=== PATIENT | male | born 1980 | race Caucasian/White ===

== ENCOUNTER 2020-11-18 08:17 | Inpatient (IN) | payer MEDICAID ==
[~2020-11-18 08:17] MED LIST: Acetaminophen 500 MG Tab PO ONE; Celecoxib 200 MG Cap PO ONE; Dexamethasone 4 MG/ML SDV ONE; Glycopyrrolate 0.2 MG/ML 5 ML MDV ONE; Neostigmine Methylsulfate 1 MG/ML 5 ML Syringe ONE; Ondansetron 4 MG/2 ML SDV ONE; Propofol 200 MG/20 ML SDV ONE; Scopolamine 1.5 MG Transdermal Patch TRDERM SCH; Succinylcholine 200 MG/10 ML MDV ONE; cefOXitin 2 GM Vial ONE; fentaNYL 250 MCG/5 ML SDV ONE
[2020-11-18] MEDS ORDERED: Rocuronium 50 MG/5 ML Vial ONE ×2 (08:44)
[2020-11-18] MEDS ORDERED: Dextrose 5%-Lactated Ringers 1,000 ML IV SCH ×2 (08:45→14:15)
[2020-11-18] MEDS ORDERED: Albuterol/Ipratropium 3.0-0.5 MG/3 ML Neb Soln NEB ONE (09:15)
[2020-11-18] MEDS ORDERED: Ketamine 50 MG in Sodium Chloride 0.9% 49.5 ML IV SCH (10:00)
[2020-11-18] MEDS ORDERED: Magnesium Sulfate 4.3 GM in Sodium Chloride 0.9% 250 ML IV ONE (10:00)
[2020-11-18] MEDS ORDERED: Ketamine 500 MG/5 ML MDV IV SCH (10:00)
[2020-11-18] MEDS ORDERED: Lactated Ringers 1,000 ML ONE (10:03)
[2020-11-18] MEDS: cefOXitin 2 GM in Sodium Chloride 0.9% 50 ML IV ONE ×2 (10:16→11:30)
[2020-11-18] MEDS ORDERED: Sodium Chloride 0.9% 10 ML ONE (10:53)
[2020-11-18] MEDS ORDERED: ePHEDrine 50 MG/ML SDV ONE (10:53)
[2020-11-18] MEDS ORDERED: fentaNYL 100 MCG/2 ML SDV ONE (11:56)
[2020-11-18] MEDS ORDERED: HYDROmorphone 1 MG/ML Syringe IV PRN (14:00)
[2020-11-18] MEDS ORDERED: oxyCODONE 5 MG Tab PO PRN (14:00)
[2020-11-18] MEDS: traMADol 50 MG Tab PO PRN ×2 (14:01→20:02)
[2020-11-18] MEDS ORDERED: Cyclobenzaprine 10 MG Tab PO PRN (14:06)
[2020-11-18] MEDS ORDERED: cloNIDine 0.1 MG Tab PO PRN (14:13)
[2020-11-18] MEDS: HYDROmorphone 0.5 MG/0.5 ML Syringe IVPUSH PRN ×2 (14:45→22:37)
[2020-11-18] MEDS ORDERED: LORazepam 2 MG/ML SDV IVPUSH PRN (14:56)
[2020-11-18] MEDS ORDERED: Albuterol/Ipratropium 3.0-0.5 MG/3 ML Neb Soln INH PRN (15:00)
[2020-11-18] MEDS ORDERED: Calcium Gluconate 10% 1 GM/10 ML SDV IVPUSH PRN (15:00)
[2020-11-18] MEDS ORDERED: Metoclopramide 10 MG/2 ML SDV IVPUSH PRN (15:00)
[2020-11-18] MEDS ORDERED: Acetaminophen 500 MG Tab PO PRN (15:00)
[2020-11-18] MEDS ORDERED: hydrOXYzine HCL 100 MG/2 ML SDV IM PRN (15:00)
[2020-11-18] MEDS ORDERED: diphenhydrAMINE 50 MG/ML SDV IVPUSH PRN (15:00)
[2020-11-18] MEDS ORDERED: Ondansetron 4 MG/2 ML SDV IVPUSH PRN (15:00)
[2020-11-18] MEDS ORDERED: Labetalol 20 MG/4 ML Syringe IVPUSH PRN (15:00)
[2020-11-18] MEDS ORDERED: Pantoprazole 40 MG Vial IVPUSH SCH (16:00)
[2020-11-18] MEDS: cefOXitin 2 GM in Sodium Chloride 0.9% 50 ML IV SCH ×2 (16:04→22:15)
[2020-11-18] MEDS: MVI, Adult with Vitamin K 10 ML, Thiamine 200 MG, Zinc/Copper/Manganese/Selenium 1 ML i... IV SCH ×4 (16:35)
[2020-11-18] MEDS: Acetaminophen 500 MG Tab PO SCH ×2 (16:37→23:47)
[2020-11-18] MEDS: hydrALAZINE 25 MG Tab PO SCH ×2 (16:37→22:22)
[2020-11-18] MEDS: Albuterol/Ipratropium 3.0-0.5 MG/3 ML Neb Soln INH SCH ×2 (17:25→22:07)
[2020-11-18] MEDS: Enoxaparin 40 MG/0.4 ML Syringe SUBCUT SCH (20:01)
[2020-11-18] MEDS ORDERED: Metoprolol Tartrate 50 MG Tab PO SCH (21:00)
[2020-11-18] MEDS: amLODIPine 5 MG Tab PO SCH (22:17)
[2020-11-18] MEDS: Metoprolol Succinate 50 MG Tab.ER PO SCH (22:22)
[2020-11-19] MEDS: traMADol 50 MG Tab PO PRN (02:18)
[2020-11-19] MEDS: HYDROmorphone 0.5 MG/0.5 ML Syringe IVPUSH PRN (03:03)
[2020-11-19] MEDS: cefOXitin 2 GM in Sodium Chloride 0.9% 50 ML IV SCH ×3 (03:49→15:12)
[2020-11-19] MEDS ORDERED: Iopamidol 612 MG/ML 50 ML SDV PO ONE (05:09)
[2020-11-19] MEDS ORDERED: Ondansetron 4 MG Tab.DIS PO PRN (07:12)
[2020-11-19] MEDS: Albuterol/Ipratropium 3.0-0.5 MG/3 ML Neb Soln INH SCH ×4 (07:21→21:15)
[2020-11-19] MEDS: HYDROmorphone 2 MG Tab PO PRN ×5 (07:25→23:48)
[2020-11-19] MEDS: Levothyroxine 25 MCG Tab PO SCH (07:28)
[2020-11-19] MEDS: Enoxaparin 40 MG/0.4 ML Syringe SUBCUT SCH ×2 (07:29→19:34)
[2020-11-19] MEDS: Acetaminophen 500 MG Tab PO SCH ×3 (07:29→23:48)
--- NOTE | 2020-11-19 08:58 | PN ---
DATE OF SERVICE: 11/19/2020 SUBJECTIVE: Juan is postop day 1. His upper GI was completed. He has been afebrile. Oral intake 2560. Urine output has been independent. Several voids in the bathroom. EVE drain put out 60 mL of a serosanguineous drainage. REVIEW OF SYSTEMS: Remainder of review of systems negative for any pertinent positives and negatives. OBJECTIVE: GENERAL: Juan Ambriz is a pleasant 40-year-old male. He is alert and orientated. VITAL SIGNS: TPR is 95.2, 86, 18. Blood pressure 120/76. HEENT: Negative. NECK: Supple. HEART: Regular rate and rhythm. LUNGS: Clear. ABDOMEN: Dressings dry and intact. Abdominal binder is on. EXTREMITIES: Without peripheral edema. ASSESSMENT: Laparoscopic Cathryn-en-Y gastric bypass surgery, liver biopsy, takedown of gastrostomy, small bowel resection and repair of paraesophageal diaphragmatic hernia and excision of mediastinal lipoma for morbid obesity, hepatomegaly, status post gastrostomy with revision of small bowel, diaphragmatic hernia, mediastinal lipoma. Date of procedure 11/18/2020. PLAN: Step 2 gastric bypass diet without cereal. May saline lock IV. Dressing off, may shower. Discontinue IV Dilaudid. May have Dilaudid 2 mg q.4 hours p.r.n. pain. Ambulate at least 6 times a day. Use incentive spirometer 10 times every hour while awake. We will evaluate p.r.n. or in a.m. Magda Loo PA-C /[id number]
--- NOTE | 2020-11-19 10:22 | CR ---
[facility] HISTORY: Postbariatric surgery FINDINGS: Patient swallowed water-soluble contrast. Upright views of the abdomen show no evidence of extravasation or obstruction. There is a surgical drain in the left upper quadrant. IMPRESSION: Status post bariatric surgery No extravasation or obstruction seen
[2020-11-19] MEDS: Losartan 50 MG Tab PO SCH (10:32)
[2020-11-19] MEDS: hydrALAZINE 25 MG Tab PO SCH ×3 (10:33→21:18)
[2020-11-19] MEDS: Chlorthalidone 25 MG Tab PO SCH (10:33)
[2020-11-19] MEDS: Celecoxib 200 MG Cap PO SCH ×2 (10:33→21:18)
[2020-11-19] MEDS: Hydrochlorothiazide 12.5 MG Cap PO SCH (10:34)
[2020-11-19] MEDS: Aspirin 81 MG Tab.EC PO SCH (10:34)
[2020-11-19] MEDS: amLODIPine 5 MG Tab PO SCH ×2 (10:34→21:18)
[2020-11-19] MEDS: SCOPOLAMINE PATCH CHECK TOP SCH (10:34)
[2020-11-19] MEDS: Sertraline 50 MG Tab PO SCH (10:35)
[2020-11-19] MEDS: Metoprolol Succinate 50 MG Tab.ER PO SCH ×2 (10:35→21:19)
[2020-11-19] MEDS ORDERED: Pantoprazole 40 MG Delayed-Release Granules 1 Packet PO SCH (16:00)
[2020-11-19] MEDS: MVI, Adult with Vitamin K 10 ML, Thiamine 200 MG, Zinc/Copper/Manganese/Selenium 1 ML i... IV SCH ×4 (16:51)
[2020-11-19] MEDS ORDERED: Warfarin 5 MG Tab PO SCH (21:00)
[2020-11-20] MEDS: HYDROmorphone 2 MG Tab PO PRN ×2 (04:00→08:13)
[2020-11-20] MEDS: Albuterol/Ipratropium 3.0-0.5 MG/3 ML Neb Soln INH SCH (07:17)
[2020-11-20] MEDS: hydrALAZINE 25 MG Tab PO SCH (08:09)
[2020-11-20] MEDS: Enoxaparin 40 MG/0.4 ML Syringe SUBCUT SCH (08:09)
[2020-11-20] MEDS: Aspirin 81 MG Tab.EC PO SCH (08:09)
[2020-11-20] MEDS: Acetaminophen 500 MG Tab PO SCH (08:09)
[2020-11-20] MEDS: Celecoxib 200 MG Cap PO SCH (08:10)
[2020-11-20] MEDS: Chlorthalidone 25 MG Tab PO SCH (08:10)
[2020-11-20] MEDS: Levothyroxine 25 MCG Tab PO SCH (08:10)
[2020-11-20] MEDS: Hydrochlorothiazide 12.5 MG Cap PO SCH (08:11)
[2020-11-20] MEDS: Losartan 50 MG Tab PO SCH (08:11)
[2020-11-20] MEDS: amLODIPine 5 MG Tab PO SCH (08:12)
[2020-11-20] MEDS: Metoprolol Succinate 50 MG Tab.ER PO SCH (08:12)
[2020-11-20] MEDS: Sertraline 50 MG Tab PO SCH (08:12)
[2020-11-20] MEDS: SCOPOLAMINE PATCH CHECK TOP SCH (08:13)
[2020-11-20] MEDS ORDERED: Cyanocobalamin (Vitamin B12) 1,000 MCG/ML SDV IM ONE (09:00)
--- NOTE | 2020-11-20 13:14 | DISCH ---
ADMISSION DIAGNOSES: Morbid obesity, acute on chronic combined systolic and diastolic congestive heart failure, vitamin D deficiency, anxiety, depression, gastroesophageal reflux disease, secondary hypertension, hyperlipidemia, edema, hypothyroidism, generalized anxiety disorder, major depression disorder, and panic disorder with agoraphobia. DISCHARGE DIAGNOSES: 1. Laparoscopic Cathryn-en-Y gastric bypass surgery. 2. Liver biopsy. 3. Takedown of gastrostomy. 4. Small bowel resection. 5. Repair of paraesophageal diaphragmatic hernia. 6. Excision of mediastinal lipoma. POSTOPERATIVE DIAGNOSES: 1. Morbid obesity. 2. Hepatomegaly. 3. Status post gastrostomy with revision of small bowel diaphragmatic hernia. 4. Mediastinal lipoma. 5. Date of procedure: 11/18/2020. Surgeon: Kin Greco MD. HISTORY: Juan Ambriz is a pleasant 40-year-old male with longstanding history of morbid obesity and increasing comorbidities. After preoperative evaluation and discussion of possible risks and possible complications, he wished to proceed with surgical procedure. HOSPITAL COURSE: Postop day #1, Juan was started on a step 1 gastric bypass diet. IV was saline locked. Dressing was off. He was started on oral pain medication. On postoperative day #2, he was able to be discharged to home. Vital signs were stable. He had adequate education. Oral intake was 4116. Urine output was 1750 plus several voids. He reports he drinks a lot a water because he has dry mouth and instructed to use ice chips or popsicles and to slow down the drinking of fluids. Juan's condition was stable and improving. PHYSICAL EXAMINATION: GENERAL: Juan is a pleasant 40-year-old male. VITAL SIGNS: Height is 5 feet 11 inches, weight is 289 pounds 8 ounces, BMI is 40. TPR 97, 60, 18, blood pressure 116/72. HEENT: Negative. NECK: Supple. HEART: Regular rate and rhythm. LUNGS: Clear. ABDOMEN: Incisions look good. Sutures intact in the trocar sites. EVE drain intact and this will be removed prior to discharge. LABORATORY DATA: PT was 10.6, INR is 0.97. He started his Coumadin yesterday along with the Lovenox 40 subcu b.i.d. DISPOSITION: Discharged to home. CONDITION: Stable and improving. FOLLOWUP: Appointment with Magda Loo PA-C, on 11/29/2020 at 10 a.m. He is to get his PT and INR checked on 11/23/2020 with his primary care provider. HOME MEDICATIONS: 1. Celebrex 200 mg p.o. b.i.d., #28. 2. Dilaudid 2 mg p.o. q.4 hours p.r.n. pain, #12. 3. Zofran ODT 4 mg p.o. q.4 hours p.r.n. nausea and vomiting, #30. 4. He is to take Tylenol 1000 mg p.o. q.8 hours scheduled. 5. Norvasc 10 mg p.o. b.i.d. 6. Aspirin 81 mg p.o. daily. 7. Chlorthalidone 25 mg p.o. daily scheduled. 8. Catapres 0.3 mg t.i.d. p.r.n. 9. Pepcid 20 mg p.o. daily. 10.Lovenox 40 mg subcu b.i.d. His primary care provider gave him a prescription to bridge. He has enough at home. 11.Apresoline 50 mg p.o. t.i.d. 12.Coumadin 10 mg at bedtime. 13.Simvastatin 40 mg p.o. daily. 14.Sertraline 200 mg p.o. daily. 15.Metoprolol succinate 100 mg p.o. b.i.d. 16.Losartan/hydrochlorothiazide 100/12.5 mg 1 tablet daily. 17.Levothyroxine 75 mcg p.o. daily. 18.Diphenoxylate/atropine 2.5/0.025 1 tablet as directed p.r.n. 19.Chlorthalidone 25 mg daily. 20.Ventolin inhaler 2 puffs inhalation q.i.d. p.r.n. DIET: Step 1 gastric bypass diet with milk and protein drinks until next appointment. Keep track of protein and fluid intake to get 75 g of protein as a goal in 64 ounces of liquids. Instructed to use his biotin spray in his mouth to prevent mouth dryness in order not to drink too much with his recent surgery. ACTIVITY: No lifting greater than 10 pounds for 2 weeks. Walk at least 6 times daily at home. Driving: Do not drive for 1 week. DISCHARGE INSTRUCTIONS: May shower. Keep operative site clean and dry. Wear abdominal binder for 2 weeks and as tolerated. Notify provider if any fever, increased pain, swelling, redness, drainage, nausea, vomiting. Use incentive spirometer 10 times every hour while awake for 1 week. Keep a record of protein and liquid intake and bring to clinic appointments. Get your PT and INR checked 11/23/2020 with your provider. /[id number]
--- NOTE | 2020-11-29 10:15 | OR ---
DATE OF PROCEDURE: 11/18/2020 SURGEON: Kin Greco MD PREOPERATIVE DIAGNOSIS: Morbid obesity. POSTOPERATIVE DIAGNOSES: 1. Morbid obesity. 2. Marked hepatomegaly. 3. Status gastrostomy. 4. Ischemic small bowel after initial division of small bowel following formation of Cathryn- en-Y configuration. 5. Paraesophageal diaphragmatic hernia. 6. Mediastinal lipoma. OPERATIVE PROCEDURES: Diagnostic laparoscopy with: 1. Laparoscopic Cathryn-en-Y gastric bypass with long limb gastroenterostomy (17098). 2. Marshal-Cut needle liver biopsy (07355). 3. Takedown of gastrostomy (84045). 4. Small bowel resection (18136). 5. Repair of paraesophageal diaphragmatic hernia (48633). 6. Excision of mediastinal lipoma (60844). ANESTHESIA: General. INDICATIONS FOR PROCEDURE: This is a 40-year-old presenting with longstanding morbid obesity and increasingly significant comorbidities. After preoperative evaluation and discussion, he wished to proceed with a gastric bypass procedure. The patient in the last few months had a perforated diverticulitis with septic shock and with a gastrostomy tube placed. Nonetheless, we would expect most likely we would be able to perform this procedure laparoscopically, although he is aware there is somewhat high risk of needing an open approach given his previous surgical history. Otherwise potential risks including bleeding, infection, injury to underlying viscera, problems with bowel obstruction over time, as well as possibility of cardiopulmonary, septic, or hemorrhagic complications leading to were discussed, and the patient wishes to proceed. DETAILS OF PROCEDURE: The patient was taken to the operative room and placed in a supine position. After general endotracheal anesthesia was induced, the abdomen was prepped and draped. 15 cm inferior and inferior 5 cm left of the xiphoid process, a transverse incision was made and peritoneal cavity entered under direct vision with an Optiview trocar and inflated to 15 mmHg pressure with CO2. The laparoscope was reinserted. No underlying trocar insertion site injuries were seen. Bilateral transversus abdominis plane block was placed and 5 additional trocars were placed across the upper mid abdomen. The patient was noted to have marked hepatomegaly with liver volume being roughly 2 to 3 of normal. Marshal-Cut needle biopsy was obtained from the left lobe of the liver. Minimal bleeding from the biopsy sites was controlled with electrocautery. Additional finding at this point was that of an intact gastrostomy. The stomach was adherent to the linear strand, to the anterior abdominal wall in the left upper quadrant. This area was divided flush with the combination of a LOWELL purple load, and then excised using electrocautery at the level of the abdominal wall and that segment of the gastrostomy was then delivered from the field. The patient had fairly confluent adhesions to the omentum in the infraumbilical area. However, we were able to divide the omentum beginning in the left lower quadrant obliquely upward toward the transverse colon just to the right of midline. This allowed adequate mobilization of the transverse colon, and small bowel could be identified at the ligament of Treitz. The small bowel was then traced out 150 cm distal to that point, where it was divided transversely with a LOWELL stapler. The proximal end of the division of the small bowel was noted to be ischemic. At this point, this area was resected with additional LOWELL staple firing along with division of underlying mesentery with a Harmonic Scalpel. At that point, the remaining small bowel appeared to be adequately vascularized, and that segment of small bowel that was resected was delivered off the field. At the point again 150 cm distal to the original division point, the enteroenterostomy was accomplished with internal firing of the Endo-LOWELL 60 mm loads. Common opening was then closed transversely with the same stapler and the angles anastomosed and mesenteric defect approximated with some 0 Vicryl stitch along with fibrin sealant. The divided end of the Cathryn limb was then from the mesentery for a few centimeters which allowed an antecolic position of the Cathryn limb up to the level of the esophagogastric junction without significant tension. The liver was retracted anteriorly. The patient was noted to have moderate-sized paraesophageal diaphragmatic hernia. This contained some perigastric fat, gastric fundus, and a tongue of omentum. The hernia was retracted downward and the peritoneum overlying incised and reflected downward. During the course of dissection, a mediastinal lipoma was encountered, and this was excised to allow more satisfactory closure of the crura. The crural repair was then accomplished with 0 Ethibond sutures reinforced with PTFE pledgets. The gastrointestinal catheter was inflated to 15 mL and pulled up snugly against the EG junction. Gastric wall over the apex balloon was then marked with electrocautery, and balloon catheter deflated and pulled up from the esophagus. The lesser omental tissue adjacent to the gastric cardia was then divided allowing dissection behind the stomach at that level. Pouch formation was initiated with transverse firing of the LOWELL stapler at the level of the cauterized christopher gastric cardia and then completed with additional firings of LOWELL manjinder up to and through the angle of His. Upon completion of the pouch, both staple lines were noted to be intact. The anvil of a 25 mm EEA stapler was then attached to a Stuart sump type tube, brought down through the small opening in the gastric pouch allowing the anvil likewise to be pulled down to within the gastric pouch. The divided end of the Cathryn limb was then opened and main body of EEA stapler passed several centimeters into the lumen of the small bowel, brought up the anvil, and united with it, thus creating the gastrojejunostomy. Upon removal of the stapler, double donuts of mucosa were noted within it. The small bowel was closed off with a vascular staple line. The gastrojejunostomy was reinforced with 3-0 Vicryl seromuscular stitch along with fibrin sealant. Leak test was accomplished with injection of air into the gastric pouch with the area being submerged with antibiotic-containing saline solution. No leaks were identified. A single Anibal-Mcmanus drain was taken out through the left lateral trocar site and positioned adjacent to the gastrojejunostomy, and from there up into the splenic fossa. Trocars were removed and the peritoneal cavity deflated. The incisions were closed with some 4-0 Vicryl skin stitch which was also used to fix the Anibal-Mcmanus drain. The patient was taken to the recovery room in satisfactory condition. Physician assistant professor, Magda Loo, played an essential role in assisting in this case, helping to position the patient, retract structures as needed, as well as suturing and cutting sutures when indicated. Her presence improved patient safety and decreased the operative time. Kin Greco MD /[id number]
== END 2020-11-20 11:27 | disposition home or self-care (01) | DRG 619 ==
LOC: JP.SDS 08:17 → JP.SDSSCHI 08:17 → EDSTATUS 08:45 → JP.MS 12:30
PROVIDERS: ADMIT Surgery; ATTEND Surgery
PROC: 0D164ZA Bypass Stomach to Jejunum, Percutaneous Endoscopic Approach (ICD-10-PCS; principal; 2020-11-18)
PROC: 0FB24ZX Excision of Left Lobe Liver, Percutaneous Endoscopic Approach, Diagnostic (ICD-10-PCS; 2020-11-18)
PROC: 0DB84ZZ Excision of Small Intestine, Percutaneous Endoscopic Approach (ICD-10-PCS; 2020-11-18)
PROC: 0BQT4ZZ Repair Diaphragm, Percutaneous Endoscopic Approach (ICD-10-PCS; 2020-11-18)
PROC: 0JB63ZZ Excision of Chest Subcutaneous Tissue and Fascia, Percutaneous Approach (ICD-10-PCS; 2020-11-18)
DX: E66.01 Morbid (severe) obesity due to excess calories (principal); I50.43 Acute on chronic combined systolic (congestive) and diastolic (congestive) heart failure; E55.9 Vitamin D deficiency, unspecified; F32.9 Major depressive disorder, single episode, unspecified; K21.9 Gastro-esophageal reflux disease without esophagitis; I27.20 Pulmonary hypertension, unspecified; E78.5 Hyperlipidemia, unspecified; E03.9 Hypothyroidism, unspecified; F41.1 Generalized anxiety disorder; F40.00 Agoraphobia, unspecified; R16.0 Hepatomegaly, not elsewhere classified; Z79.899 Other long term (current) drug therapy; Z79.890 Hormone replacement therapy; Z88.8 Allergy status to other drugs, medicaments and biological substances; Z68.41 Body mass index [BMI] 40.0-44.9, adult
CPT/HCPCS: 36415; 74240; 74240-26; 82947; 85610; 86850; 86900; 86901; 88304; 88305; 88307; 88313; 94640; 94762; A9270-GY; C9113; J0171; J0330; J0694; J1100; J1170; J1650; J2405; J2704; J2710; J2795; J3010; J3410; J3411; J3420; J3475; J3490; J7050; J7120; J7121; J7620-GY; Q9967